=== PATIENT | male | born 1965 | race Asian ===

== ENCOUNTER 2016-07-16 09:07 | Day surgery (SDC) | payer OTHER ==
[2016-07-14 12:02] VITALS: BMI 19.7
[2016-07-16] MEDS ORDERED: oxyCODONE HCL 10 MG SUSTAINED ACTING TABLET ONE (10:00)
[2016-07-16] MEDS ORDERED: oxyCODONE HCL 10 MG SUSTAINED ACTING TABLET PO ONE (10:22)
--- NOTE | 2016-07-16 10:23 | HP ---
History & Physical Update - History History: No Change - Physical Physical: No Change - Assessment Assessment: No Change - Plan Plan: No Change
[2016-07-16] MEDS ORDERED: PROPOFOL 20 ML ONE ×3 (10:25→11:56)
[2016-07-16] MEDS ORDERED: MIDAZOLAM HCL 2 MG/2 ML SINGLE DOSE VIAL ONE (10:25)
[2016-07-16] MEDS ORDERED: LIDOCAINE 1%-EPI 1:100,000 30 ML MDV IJ ONE (10:27)
[2016-07-16] MEDS ORDERED: methylPREDNISolone ACET (DEPO) 40 MG/1 ML VIAL ONE (10:27)
[2016-07-16] MEDS ORDERED: BUPIVACAINE HCL/PF 2.5 MG/ML - 30 ML VIAL IJ ONE (10:27)
[2016-07-16] MEDS ORDERED: THROMBIN (BOVINE) 5,000 UNIT VIAL TP ONE ×2 (10:27→12:15)
[2016-07-16] MEDS ORDERED: DEXAMETHASONE SOD PHOSPHATE 4 MG/1 ML VIAL ONE ×2 (10:31→12:31)
[2016-07-16] MEDS ORDERED: ONDANSETRON 4 MG/2 ML VIAL ONE ×2 (10:31→12:31)
[2016-07-16] MEDS ORDERED: ceFAZolin SODIUM 1 GM VIAL ONE (11:09)
[2016-07-16] MEDS ORDERED: LIDOCAINE 1%/EPI 1:100000 (20 ML MULTI DOSE VIAL) PNB ONE (11:16)
[2016-07-16] MEDS ORDERED: methylPREDNISolone ACET (DEPO) 40 MG/1 ML VIAL IM ONE (12:15)
[2016-07-16] MEDS ORDERED: BUPIVACAINE HCL/PF 0.25% (2.5MG/ML) 10 ML VIAL IJ ONE (12:16)
--- NOTE | 2016-07-16 12:40 | OP ---
Operative Note - Note: Operative Date: 07/16/16 Pre-Operative Diagnosis: spinal stenosis Operation: laminectomy of L4-L5 with microdiscetomy Post-Operative Diagnosis: Same as Pre-op Surgeon: Ilya Richard Bond Underwriter: Alona Wood Anesthesiologist/CYLINDER PRESS OPERATOR APPRENTICE: Linden Sommers Anesthesia: Spinal Specimens Removed: L4-L5 disc Estimated Blood Loss (mls): 20 Fluid Volume Replaced (mls): 800 Operative Report Dictated: Yes
[2016-07-16] MEDS ORDERED: PROMETHAZINE HCL 25 MG/1 ML VIAL IVPUSH PRN (12:49)
[2016-07-16] MEDS ORDERED: oxyCODONE HCL 5 MG TABLET PO PRN (12:49)
--- NOTE | 2016-07-16 12:49 | SURG ---
Surgery Building Performance Specialist Note Building Performance Specialist: Aolna Wood PA-C Date of Service: 07/16/16 Diagnosis: spinal stenosis Procedure: laminectomy of L4-L5 with microdiscetomy I was present for the entirety of the operative procedure. For further detail, please refer to operative report. Visit type - Case Type Case Type: Scheduled Admission - New patient This patient is new to me today: Yes Date on this admission: 07/16/16
[2016-07-16] MEDS ORDERED: LACTATED RINGERS SOLUTION 1,000 ML IV SCH (13:00)
[2016-07-16 16:27] VITALS: TEMP 98.2
[2016-07-16 16:29] VITALS: BP 116/64; PULSE 82
--- NOTE | 2016-07-17 11:59 | OP ---
DATE OF OPERATION: 07/16/2016 PREOPERATIVE DIAGNOSIS: Spinal stenosis L4-5. POSTOPERATIVE DIAGNOSIS: Spinal stenosis L4-5. PROCEDURE PERFORMED: Laminectomy, L4-5. SURGEON: Ilya Richard MD NEW CAR DRIVER: JOSIANE Cunningham ESTIMATED BLOOD LOSS: 50 mL. INTRAVENOUS FLUIDS: Per Anesthesia. ANESTHESIA: Spinal. COMPLICATIONS: None. DISPOSITION: Patient brought to the PACU in stable condition. INDICATIONS FOR SURGERY: The patient is a 50-year-old gentleman who has been suffering from significant pain from his back down his legs. X-rays and MRI were completed which noted he had spinal stenosis at L4-5 secondary to a herniated disk. He had gone through an exhaustive course of treatment for this, which included medications, physical therapy, as well as injections. Unfortunately, his pain continued to persist, despite all this. At this point, the risks, benefits, and alternatives were discussed and the patient consented to surgery. DESCRIPTION OF PROCEDURE: The patient was brought to the operating room by the Anesthesia Department. After appropriate patient identification was performed, spinal anesthesia was given. The patient was able to position himself prone onto the [place] frame will all bony prominences well-padded at this time. Two needles were placed into the back to anthony off the L4-5 level. An x-ray was taken to confirm this. The needle was removed and 10 mL of lidocaine with epinephrine was injected into his back at this time. His back was prepped and draped in a sterile manner. At this point, a timeout was completed and an incision was made from the top of L4 down to the bottom of L5. Dissection was carried down to the fascia. The fascia was split open at this time and appropriate retractors were then placed. A spinal needle was placed onto the L4 lamina to anthony off the L4-5 level. An x-ray was confirmed this was correct. The needle was removed. The microscope was brought in and the intraspinous ligament at L4-5 was removed. The endplate was identified and was removed. A portion of the inferior and superior facets were removed to complete our foraminotomy. The nerve root was mobilized medially. A disk herniation was noted. It was removed at this time. By the end of the procedure, both L5 nerve roots appeared to be well decompressed. All bleeding was well controlled at this time. Steroid was placed over the nerve root. FloSeal was placed over that. The fascia was closed with a No. 1 Vicryl suture. The subcutaneous tissue was closed with 2-0 Vicryl suture. The skin was closed with 3-0 Monocryl suture. Dermabond was applied. Steri-Strips were applied. Sterile dressing was applied. The patient was placed supine on the OR bed and brought to the PACU in stable condition. Chester SHARP/[id number] MTDD
--- NOTE | 2016-07-17 14:49 | PATH ---
Surgical Pathology Report Patient Name: TEREZA WHITTEN [facility]. Rec. #: [id number] /Age/Gender: 1965 (Age: 50) / M Account: [id number] Location: [facility] Taken: 07/16/2016 Received: 07/16/2016 Reported: 07/17/2016 Physicians: Ilya Richard M.D. Specimen(s) Received L4-5 DISC Clinical History Spinal stenosis Final Diagnosis L4-5 DISC, LAMINECTOMY: CARTILAGE WITH DEGENERATIVE CHANGES. Electronically Signed Lorna Funk M.D. Gross Description Received in formalin, labeled "L4-5 disc," is a 2.5 x 2.0 x 0.3 cm aggregate of shelton fragments of fibrocartilaginous tissue. The specimen is entirely submitted in one cassette. 07/16/201607/16/2016
== END 2016-07-16 16:20 | disposition home or self-care (01) ==
LOC: FASU 09:07
PROVIDERS: ATTEND Orthopaedic Surgery Orthopaedic Surgery of the Spine
PROC: 01NB0ZZ Release Lumbar Nerve, Open Approach (ICD-10-PCS; principal; 2016-07-16 11:28)
DX: M48.06 Spinal stenosis, lumbar region (principal)
CPT/HCPCS: 72100-TC; 76000-TC; 88304-TC; 94760